=== PATIENT | female | born 1950 | race Caucasian/White ===

== ENCOUNTER 2018-06-13 10:34 | Emergency (ER) | payer MEDICARE, BC, SELFPAY ==
--- NOTE | 2018-06-13 10:35 | DI.RAD.S_ITS ---
PROCEDURE: XR FOOT LT MIN 3V INDICATIONS: injury pain TECHNIQUE: 3 views of the foot were acquired. COMPARISON: None. FINDINGS: Bones: No dislocations but there is prominent soft tissue swelling over the dorsum of the foot distally, near the distal metatarsal forefoot region on the lateral view and also quite severe degenerative osteophytic change at the first MTP joint where [id number] articulation can be seen. There is a transverse fracture at the base of the fifth metatarsal and possible fracture at the base of the fourth metatarsal No suspicious bony lesions. Soft tissues: No tibiotalar joint effusion. Achilles tendon appears free of disruption but there is calcific tendinitis at the Achilles tendon insertion margin. IMPRESSION: Definite fracture at the base of the fifth metatarsal, transverse. Questionable lucency seen on one view only at the base of the fourth metatarsal considered more likely to be sequela of bone overlap along the cortical margin rather than a true fracture. Prominent soft tissue swelling over the dorsum of the forefoot without evidence of associated or subluxation in that forefoot area. Ligamentous injury might explain that appearance. 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 Trauma in that area is not seen. Dictated by: Earnest Zheng M.D. on 06/13/2018 at 10:51 Approved by: Earnest Zheng M.D. on 06/13/2018 at 10:55
--- NOTE | 2018-06-13 10:43 | ED_ITS ---
HPI - Extremity Injury (Lower) General Chief Complaint: Extremity Injury, Lower Stated Complaint: HURT LEFT FOOT Time Seen by Provider: 06/13/18 10:36 Source: patient Mode of arrival: ambulatory Limitations: no limitations History of Present Illness HPI Narrative: 68-year-old female here for evaluation of left foot injury. Patient states that it occurred last evening when she was stepping down. She did twist her ankle ?in ?has had pain since then. Arrived with a rapid an Mo bandage. Was unable to ambulate on it this morning. No prior injury to this. Related Data Previous Rx's Medication Instructions Recorded hydrocodone-acetaminophen 1 tab PO Q6H PRN #10 tab 06/13/18 Allergies Allergy/AdvReac Type Severity Reaction Status Date / Time No Known Drug Allergies Allergy Verified 06/13/18 10:48 Review of Systems Constitutional Denies headache(s) ENT Ears, Nose, Mouth, and Throat: Denies headache(s) Musculoskeletal Comments: Left foot pain Integumentary/Breasts Denies lesions and Denies rash Neurologic Denies headache(s) Comments: No numbness or tingling in her left foot Hematologic/Lymphatic Denies easy bleeding and Denies easy bruising [facility] Medical History Healthy adult (Acute) Surgical History No history of previous surgery (Acute) Social History Smoking Status: Never smoker Exam Initial Vital Signs Initial Vital Signs: Vital Signs Temperature 99.1 F 06/13/18 10:49 Pulse Rate 86 06/13/18 10:49 Respiratory Rate 16 06/13/18 10:49 Blood Pressure 148/78 H 06/13/18 10:49 Pulse Oximetry 95 06/13/18 10:49 Const General: cooperative, healthy appearing, well developed, well groomed and No acute distress Orientation: alert, awake and oriented x3 Resp Effort & Inspection: normal respiratory effort Cardio Pulses: dorsalis pedis present on the left Skin Lesions: no lesions Rashes: no rashes Neuro Other: Sensation intact to light touch left lower extremity Extrem Other: No tenderness to palpation the left knee or left proximal fibula Does have tenderness to palpation at the base of the 5th metatarsal and at the base of the 4th metatarsal. Does have swelling of the left midfoot. No Achilles tendon tenderness. Psych Appearance: grossly normal and well kempt Course Orders Ordered: ED Orders 06/13/18 10:35 XR foot LT min 3V Stat Vital Signs - 8 hr 06/13/18 10:49 Temperature 99.1 F Pulse Rate 86 Respiratory Rate 16 Blood Pressure 148/78 H Pulse Oximetry 95 MDM - Extremity Injury (Lower) Imaging Data foot x-ray: Radiologist's impression: PROCEDURE: XR FOOT LT MIN 3V INDICATIONS: injury pain TECHNIQUE: 3 views of the foot were acquired. COMPARISON: None. FINDINGS: Bones: No dislocations but there is prominent soft tissue swelling over the dorsum of the foot distally, near the distal metatarsal forefoot region on the lateral view and also quite severe degenerative osteophytic change at the first MTP joint where [id number] articulation can be seen. There is a transverse fracture at the base of the fifth metatarsal and possible fracture at the base of the fourth metatarsal No suspicious bony lesions. Soft tissues: No tibiotalar joint effusion. Achilles tendon appears free of disruption but there is calcific tendinitis at the Achilles tendon insertion margin. IMPRESSION: Definite fracture at the base of the fifth metatarsal, transverse. Questionable lucency seen on one view only at the base of the fourth metatarsal considered more likely to be sequela of bone overlap along the cortical margin rather than a true fracture. Prominent soft tissue swelling over the dorsum of the forefoot without evidence of associated or subluxation in that forefoot area. Ligamentous injury might explain that appearance. Moderately severe to severe first MTP joint degenerative osteoarthritis with [id number] articulation. Trauma in that area is not seen. Dictated by: Earnest Zheng M.D. on 06/13/2018 at 10:51 Approved by: Earnest Zheng M.D. on 06/13/2018 at 10:[address] [facility] Narrative Medical decision making narrative: Patient is neurovascularly intact. Fractures noted on the x-ray at the base of the 5th metatarsal. This corresponds to the fracture seen on the x-ray. Will place the patient in a posterior splint in place her on crutches. She was given follow-up instructions. Will send home with a prescription for pain medication as well. Patient expressed understanding and agreement with plan. Discharge Plan Departure Patient Disposition: Home Clinical Impression: Foot fracture, left Instructions: How to Use Crutches, DI for Foot Fracture, How to Take Care of Your Splint Activity Restrictions/Additional Instructions: You can call the [facility] at [phone] for a follow- up. If you do not follow-up with them you do need to follow up with your primary doctor/orthopedic group when you return back home. This injury does require you to be nonweightbearing on your left lower extremity. You need to keep the splint on and keep it clean and keep it dry. Return to the emergency department for any new or worsening symptoms Prescriptions: New hydrocodone-acetaminophen 5-325 mg tablet 1 tab PO Q6H PRN (Reason: pain) Qty: 10 RF: 0
[2018-06-13 10:49] VITALS: BP 148/78; PULSE 86; RESP 16; TEMP 37.3; O2SAT 95; BMI 32.5
[2018-06-13 12:02] VITALS: BP 141/81; PULSE 84; RESP 15; O2SAT 97
== END 2018-06-13 12:26 | disposition home or self-care (01) ==
PROVIDERS: Emergency Provider Emergency Medicine
DX: S92.351A Displaced fracture of fifth metatarsal bone, right foot, initial encounter for closed fracture (principal); W18.43XA Slipping, tripping and stumbling without falling due to stepping from one level to another, initial encounter
CPT/HCPCS: 29515; 73630; 99283